=== PATIENT | female | born 1980 | race Caucasian/White ===

== ENCOUNTER 2017-10-09 17:14 | Observation (INO) | payer OTHER ==
[2017-10-09] MEDS ORDERED: PREN-96 PO (18:15)
== END 2017-10-09 18:05 | disposition home or self-care (01) | DRG 782 ==
LOC: LDRP 17:14
PROVIDERS: ADMIT Obstetrics & Gynecology; ATTEND Obstetrics & Gynecology
DX: O36.8130 Decreased fetal movements, third trimester, not applicable or unspecified (principal); O09.523 Supervision of elderly multigravida, third trimester; Z3A.29 29 weeks gestation of pregnancy
CPT/HCPCS: 59025; 81002; G0378